=== PATIENT | female | born 1990 | race African-American/Black ===

== ENCOUNTER 2019-12-16 07:44 | Emergency (ER) | payer BC ==
[~2019-12-16] VITALS: Ht 170.2 cm; Wt 99.1 kg
[~2019-12-16 07:44] MED LIST: ADRENACLICK IM; BENADRYL25 M2 PO; CLARITIN 1010 MG/TAB PO; EPI-PEN JR0.5 MG/ML IM; EPIPEN 2-PAK1 MG/ML IM; NUVARING VAG RING VG; PHENERGAN 25 TA25 MG PO; PREDNISONE20 MG PO; PROZAC 20MG20 MG PO
[2019-12-16 07:47] VITALS: BP 109/75; TEMP 98.9
[2019-12-16 08:22] VITALS: PULSE 94
== END 2019-12-16 08:25 | disposition home or self-care (01) ==
LOC: COL.ER 07:44
DX: B34.9 Viral infection, unspecified (principal); F43.10 Post-traumatic stress disorder, unspecified; F32.9 Major depressive disorder, single episode, unspecified; F41.9 Anxiety disorder, unspecified; Z98.84 Bariatric surgery status; Z79.52 Long term (current) use of systemic steroids